=== PATIENT | female | born 1940 | race Asian ===

== ENCOUNTER 2017-09-03 17:47 | Observation (INO) | payer MEDICARE ==
[~2017-09-03] VITALS: Ht 160 cm; Wt 51.0 kg
[2017-09-03] VITALS (7 sets, daily range): BP systolic 127–146; BP diastolic 68–78; PULSE 77–88; RESP 16–18; TEMP 98.3; O2SAT 97–100
[~2017-09-03 17:47] MED LIST: PERC7.5T13 PO
[2017-09-03] MEDS ORDERED: MULTTAB12 (19:20)
[2017-09-03 19:55] LABS: AUTOMATED NEUTROPHIL # 4.2 TH/MM3 (1.8-7.7); BASOPHIL # 0.1 TH/MM3 (0-0.2); BASOPHIL % 0.9 % (0.0-2.0); CHLORIDE 101 MEQ/L (98-107); EOSINOPHIL # 0.3 TH/MM3 (0-0.4); EOSINOPHIL % 4.9 % (0.0-4.0); HEMATOCRIT 39.8 % (35.0-46.0); HEMOGLOBIN 13.7 GM/DL (11.6-15.3); LYMPH % 22.1 % (9.0-44.0); LYMPHOCYTE # 1.4 TH/MM3 (1.0-4.8); MEAN CELL VOLUME 87.5 FL (80.0-100.0); MEAN CORPUSCULAR HEMOGLOBIN 30.2 PG (27.0-34.0); MEAN CORPUSCULAR HGB CONC 34.5 % (32.0-36.0); MONO % 6.9 % (0.0-8.0); MONOCYTE # 0.4 TH/MM3 (0-0.9); NEUT % 65.2 % (16.0-70.0); PLATELET COUNT 189 TH/MM3 (150-450); RED BLOOD COUNT 4.55 MIL/MM3 (4.00-5.30); RED CELL DISTRIBUTION WIDTH 12.8 % (11.6-17.2); SODIUM (NA) 137 MEQ/L (136-145); WHITE BLOOD COUNT 6.4 TH/MM3 (4.0-11.0)
[2017-09-03 19:58] LABS: CALCIUM 8.9 MG/DL (8.5-10.1)
[2017-09-03 19:59] LABS: ALBUMIN 3.9 GM/DL (3.4-5.0); BICARBONATE 29.5 MEQ/L (21.0-32.0); BLOOD UREA NITROGEN 10 MG/DL (7-18); GLUCOSE,RANDOM 95 MG/DL (74-106); MAGNESIUM 2.5 MG/DL (1.5-2.5)
[2017-09-03 20:00] LABS: PROTHROMBIN TIME - PATIENT 10.2 SEC (9.8-11.6)
[2017-09-03 20:02] LABS: ALT (GPT) 23 U/L (10-53); AST (GOT) 26 U/L (15-37); CREATININE 0.53 MG/DL (0.50-1.00); GLOMERULAR FILTRATION RATE 112 ML/MIN (>89)
[2017-09-03 20:03] LABS: TOTAL BILIRUBIN ADULT 0.3 MG/DL (0.2-1.0); TOTAL PROTEIN 7.8 GM/DL (6.4-8.2)
[2017-09-03 20:03] LABS: BILIRUBIN, URINE NEG (NEG); BLOOD, URINE NEG (NEG); GLUCOSE,URINE NEG (NEG); KETONE, URINE NEG (NEG); NITRITE,URINE NEG (NEG); URINE COLOR YELLOW (YELLW/STRAW); URINE LEUKOCYTE ESTERASE NEG (NEG)
[2017-09-03 20:05] LABS: ALKALINE PHOSPHATASE 78 U/L (45-117)
[2017-09-03 20:07] LABS: TROPONIN I LESS THAN 0.02 NG/ML (0.02-0.05)
--- NOTE | 2017-09-03 20:09 | RADRPT ---
EXAM DATE: 09/03/2017 8:05 PM EDT AGE/SEX: 77 years / Female INDICATIONS: Dizziness. CLINICAL DATA: This is the patient's initial encounter. Patient reports that signs and symptoms have been present for 4 - 6 days and indicates a pain score of 0/10. MEDICAL/SURGICAL HISTORY: . . RADIATION DOSE: 48.37 CTDI (mGy) COMPARISON: No prior [facility] exams available for comparison. TECHNIQUE: CT of the head without contrast. Using automated exposure control and adjustment of the mA and/or kV according to patient size, radiation dose was kept as low as reasonably achievable to ob tain optimal diagnostic quality images. FINDINGS: Cerebrum: The ventricles are normal for age. No evidence of midline shift, mass lesion, hemorrhage or acute infarction. No extraaxial fluid collections are seen. Posterior Fossa: The cerebellum and brainstem are intact. The 4th ventricle is midline. The cerebe llopontine angle is unremarkable. Extracranial: The visualized portion of the orbits is intact. Skull: The calvaria is intact. No evidence of skull fracture. CONCLUSION: 1. No acute intracranial abnormality. Electronically signed by: Glenroy Puri MD 09/03/2017 8:07 PM EDT
[2017-09-03 20:13] LABS: SQUAMOUS EPITHELIAL CELL URINE 0-5 /hpf (0-5)
--- NOTE | 2017-09-03 20:16 | RADRPT ---
EXAM DATE: 09/03/2017 8:14 PM EDT AGE/SEX: 77 years / Female INDICATIONS: Dizziness, weakness for 4 days CLINICAL DATA: This is the patient's initial encounter. Patient reports that signs and symptoms have been present for 4 - 6 days and indicates a pain score of 0/10. MEDICAL/SURGICAL HISTORY: None. None. COMPARISON: No prior [facility] exams available for comparison. FINDINGS: A single AP view of the chest demonstrates the lungs to be symmetrically aerated without evidence of mass, infiltrate or effusion. The cardiomediastinal contours are unremarkable. Osseous structures a re intact. CONCLUSION: Lungs are clear. Electronically signed by: aDle Chaney MD 09/03/2017 8:15 PM EDT
--- NOTE | 2017-09-03 20:29 | PD ---
HPI Chief Complaint: Dizziness Time Seen by Provider: 19:14 Travel History International Travel<30 days: No Contact w/Intl Traveler<30days: No Traveled to known affect area: No History of Present Illness HPI Patient presents to the emergency department complaining of dizziness since Wednesday. Also reporting dyspnea at rest on exertion especially at night when she is lying flat states that she has to wake up in the [place] because she is short of breath. Complaint of substernal chest tightness, nonradiating, minutes in duration, alleviated with massage in her chest, no aggravating factors. She is also denying fever, chills, abdominal pain, diarrhea, numbness , tingling, hematuria, or vertigo. He does report nausea vomiting stating that she vomited twice on Wednesday (po intake), frontal headache, right flank pain since today while she was doing laundry. Unsure of vision change. PFSH Past Medical History Heart Rhythm Problems: Yes (DIAGNOSES ONE TIME ONLY LONG AGO) Cancer: No Cardiovascular Problems: Yes (ABNORMAL EKG) Endocrine: Yes Gastrointestinal Disorders: Yes GERD: Yes Genitourinary: No Immune Disorder: No Musculoskeletal: Yes Neurologic: No Psychiatric: No Reproductive: No Respiratory: No Thyroid Disease: Yes (STABLE CURRENTLY) Tetanus Vaccination: Unknown Influenza Vaccination: No Past Surgical History Pacemaker: No Other Surgery: Yes (COLON POLYP REMOVAL) Social History Alcohol Use: No Tobacco Use: No Substance Use: No Allergies-Medications (Allergen,Severity, Reaction): Coded Allergies: Sulfa (Sulfonamide Antibiotics) (Verified Allergy, Severe, 09/03/17) shellfish derived (Verified Allergy, Severe, 09/03/17) Reported Meds & Prescriptions Reported Meds & Active Scripts Active Reported Multiple Vitamins (Multiple Vitamin) 1 Tab Tab Review of Systems Except as stated in HPI: all other systems reviewed are Neg Physical Exam Narrative GENERAL: No acute distress. SKIN: Focused skin assessment warm/dry. HEAD: Atraumatic. Normocephalic. EYES: Pupils equal and round. No scleral icterus. No injection or drainage. ENT: No nasal bleeding or discharge. Mucous membranes pink and moist. NECK: Trachea midline. No JVD. CARDIOVASCULAR: Regular rate and rhythm. No murmur appreciated. RESPIRATORY: No accessory muscle use. Clear to auscultation. Breath sounds equal bilaterally. GASTROINTESTINAL: Abdomen soft, non-tender, nondistended. Hepatic and splenic margins not palpable. MUSCULOSKELETAL: No obvious deformities. No clubbing. No cyanosis. No edema. NEUROLOGICAL: Awake and alert. No obvious cranial nerve deficits. Motor grossly within normal limits. Normal speech. PSYCHIATRIC: Appropriate mood and affect; insight and judgment normal. Data Data Last Documented VS Vital Signs Date Time Temp Pulse Resp B/P (MAP) Pulse Ox O2 Delivery O2 Flow Rate FiO2 09/03/17 20:52 77 16 133/78 (96) 98 Room Air 09/03/17 18:06 98.3 Orders Orders Electrocardiogram (09/03/17:) B-Type Natriuretic Peptide (09/03/17:) Ckmb (Isoenzyme) Profile (09/03/17:) Complete Blood Count With Diff (09/03/17) Comprehensive Metabolic Panel (09/03/17:) Magnesium (Mg) (09/03/17:29) Prothrombin Time / Inr (Pt) (09/03/17:) Act Partial Throm Time (Ptt) (09/03/17:29) Troponin I (09/03/17:29) Chest, Single Ap (09/03/17:29) Ecg Monitoring (09/03/17:) Iv Access Insert/Monitor (09/03/17:) Oximetry (09/03/17:) Urinalysis - C+S If Indicated (09/03/17:29) Ct Brain W/O Iv Contrast(Rout) (09/03/17 19:29) Orthostatic Vital Signs (09/03/17:29) Thyroid Stimulating Hormone (09/03/17 20:32) Sodium Chlorid 0.9% 500 Ml Inj (Ns 500 M (09/03/17 20:45) Aspirin (Aspirin) (09/03/17 21:15) Admit Order (Ed Use Only) (09/03/17 21:03) Labs Laboratory Tests Test 09/03/17 19:40 09/03/17 19:51 White Blood Count 6.4 TH/MM3 Red Blood Count 4.55 MIL/MM3 Hemoglobin 13.7 GM/DL Hematocrit 39.8 % Mean Corpuscular Volume 87.5 FL Mean Corpuscular Hemoglobin 30.2 PG Mean Corpuscular Hemoglobin Concent 34.5 % Red Cell Distribution Width 12.8 % Platelet Count 189 TH/MM3 Mean Platelet Volume 8.0 FL Neutrophils (%) (Auto) 65.2 % Lymphocytes (%) (Auto) 22.1 % Monocytes (%) (Auto) 6.9 % Eosinophils (%) (Auto) 4.9 % Basophils (%) (Auto) 0.9 % Neutrophils # (Auto) 4.2 TH/MM3 Lymphocytes # (Auto) 1.4 TH/MM3 Monocytes # (Auto) 0.4 TH/MM3 Eosinophils # (Auto) 0.3 TH/MM3 Basophils # (Auto) 0.1 TH/MM3 CBC Comment DIFF FINAL Differential Comment Prothrombin Time 10.2 SEC Prothromb Time International Ratio 1.0 RATIO Activated Partial Thromboplast Time 24.7 SEC Blood Urea Nitrogen 10 MG/DL Creatinine 0.53 MG/DL Random Glucose 95 MG/DL Total Protein 7.8 GM/DL Albumin 3.9 GM/DL Calcium Level 8.9 MG/DL Magnesium Level 2.5 MG/DL Alkaline Phosphatase 78 U/L Aspartate Amino Transf (AST/SGOT) 26 U/L Alanine Aminotransferase (ALT/SGPT) 23 U/L Total Bilirubin 0.3 MG/DL Sodium Level 137 MEQ/L Potassium Level 3.7 MEQ/L Chloride Level 101 MEQ/L Carbon Dioxide Level 29.5 MEQ/L Anion Gap 7 MEQ/L Estimat Glomerular Filtration Rate 112 ML/MIN Total Creatine Kinase 45 U/L Troponin I LESS THAN 0.02 NG/ML B-Type Natriuretic Peptide 6 PG/ML Urine Color YELLOW Urine Turbidity CLEAR Urine pH 6.0 Urine Specific [place] LESS/EQUAL 1.005 Urine Protein NEG mg/dL Urine Glucose (UA) NEG mg/dL Urine Ketones NEG mg/dL Urine Occult Blood NEG Urine Nitrite NEG Urine Bilirubin NEG Urine Urobilinogen 0.2 MG/DL Urine Leukocyte Esterase NEG Urine Squamous Epithelial Cells 0-5 /hpf Microscopic Urinalysis Comment CULT NOT INDICATED MDM Medical Decision Making Medical Screen Exam Complete: Yes Emergency Medical Condition: Yes Interpretation(s) ECG: Sinus rhythm, rate 73, normal axis, normal intervals QTc 409, T-wave in 1 and aVL, T-wave inversion in V1 and V2 Labs: CBC, Colace, urinalysis, chemistry, BNP within normal limits. Cardiac enzymes within normal limits. Last Impressions Head CT 09/03/171928 Signed Impressions: CONCLUSION: 1. No acute intracranial abnormality. Chest X-Ray 09/03/171928 Signed Impressions: CONCLUSION: Lungs are clear. Differential Diagnosis Orthostasis, CVA or intracranial abnormality, ACS, CHF, musculoskeletal chest pain, UTI Narrative Course Patient presents to the emergency department complaining of dizziness and chest tightness. Placed on hall monitor, IV access obtain, EKG done, chest x-ray and labs ordered, as well as orthostats. The nurse attempted to do orthostats but patient was not able to go from sitting to standing secondary to dizziness. No evidence of orthostasis when she went from lying to sitting based on heart rate and blood pressure but patient reports dizziness. 2032: 500 cc IV normal saline ordered as well as TSH. Aspirin 325 mg p.o. also ordered. 2136: Patient reports that the dizziness is better after receiving IV fluids. She is able to sit up and eat in the ER. TSH is pending at time of admission, admit team will follow. Diagnosis Primary Impression: Dizziness Additional Impression: Chest pain Qualified Codes: R07.9 - Chest pain, unspecified Admitting Information Admitting Physician Requests: Admit Condition: Stable Blanca Menjivar MD September 03, 2017 20:29
[2017-09-03] MEDS ORDERED: SODIUM CHLORID 0.9% 500 ML INJ 500 ML IV ONE (20:45)
[2017-09-03] MEDS ORDERED: MAGNESIUM HYDROXIDE SUSP 30 ML CUP PO PRN (21:15)
[2017-09-03] MEDS ORDERED: SODIUM CHLORIDE 0.9% FLUSH 10 ML FLUSH IV FLUSH PRN (21:15)
[2017-09-03] MEDS ORDERED: MORPHINE SULFATE 2 MG/ML SYRINGE IV PUSH PRN (21:15)
[2017-09-03] MEDS ORDERED: BISACODYL 10 MG SUPP RECTAL PRN (21:15)
[2017-09-03] MEDS ORDERED: ASPIRIN 325 MG TAB PO ONE (21:15)
[2017-09-03] MEDS ORDERED: ACETAMINOPHEN/HYDROcodone 325 MG/5 MG TAB PO PRN (21:15)
[2017-09-03] MEDS ORDERED: METOCLOPRAMIDE HCL 10 MG/2 ML VIAL IV PUSH PRN (21:15)
[2017-09-03] MEDS ORDERED: SENNOSIDES 8.6 MG TAB PO PRN (21:15)
[2017-09-03] MEDS ORDERED: LACTULOSE SYRUP 20 GM/30 ML CUP PO PRN (21:15)
[2017-09-03] MEDS ORDERED: ACETAMINOPHEN 325 MG TAB PO PRN (21:15)
[2017-09-03] MEDS: SODIUM CHLOR 0.9% 1000 ML INJ 1,000 ML IV SCH (21:44)
[2017-09-04] VITALS: BP 172/81; PULSE 89; RESP 16; TEMP 98.8; O2SAT 96
[2017-09-04 04:00] VITALS: BP 169/82; PULSE 98; RESP 16; TEMP 98; O2SAT 98
[2017-09-04] MEDS: SODIUM CHLOR 0.9% 1000 ML INJ 1,000 ML IV SCH (07:02)
[2017-09-04 07:10] LABS: BASOPHIL # 0.1 TH/MM3 (0-0.2); BASOPHIL % 1.4 % (0.0-2.0); EOSINOPHIL # 0.4 TH/MM3 (0-0.4); EOSINOPHIL % 7.5 % (0.0-4.0); HEMATOCRIT 37.7 % (35.0-46.0); HEMOGLOBIN 12.4 GM/DL (11.6-15.3); LYMPH % 25.2 % (9.0-44.0); LYMPHOCYTE # 1.3 TH/MM3 (1.0-4.8); MEAN CELL VOLUME 88.6 FL (80.0-100.0); MEAN CORPUSCULAR HEMOGLOBIN 29.2 PG (27.0-34.0); MONO % 8.2 % (0.0-8.0); MONOCYTE # 0.4 TH/MM3 (0-0.9); NEUT % 57.7 % (16.0-70.0); PLATELET COUNT 150 TH/MM3 (150-450); RED BLOOD COUNT 4.25 MIL/MM3 (4.00-5.30); RED CELL DISTRIBUTION WIDTH 12.3 % (11.6-17.2); WHITE BLOOD COUNT 5.2 TH/MM3 (4.0-11.0)
[2017-09-04 07:49] LABS: ALBUMIN 3.2 GM/DL (3.4-5.0); ALKALINE PHOSPHATASE 57 U/L (45-117); ALT (GPT) 20 U/L (10-53); AST (GOT) 20 U/L (15-37); BICARBONATE 26.1 MEQ/L (21.0-32.0); BLOOD UREA NITROGEN 10 MG/DL (7-18); CALCIUM 8.3 MG/DL (8.5-10.1); CHLORIDE 111 MEQ/L (98-107); CREATININE 0.46 MG/DL (0.50-1.00); GLOMERULAR FILTRATION RATE 132 ML/MIN (>89); GLUCOSE,RANDOM 93 MG/DL (74-106); SODIUM (NA) 145 MEQ/L (136-145); TOTAL BILIRUBIN ADULT 0.5 MG/DL (0.2-1.0); TOTAL PROTEIN 6.5 GM/DL (6.4-8.2)
[2017-09-04 08:15] LABS: TROPONIN I LESS THAN 0.02 NG/ML (0.02-0.05)
[2017-09-04 08:46] VITALS: BP 139/86; PULSE 85; RESP 16; TEMP 98.2; O2SAT 98
--- NOTE | 2017-09-04 08:55 | HHI.HP ---
[facility] Primary [facility] Physician Debora Oscar MD Admission Diagnosis dizziness, chest pain Diagnoses: (1) Chest pain Diagnosis: Principal (2) Shortness of breath Diagnosis: Principal (3) Dizziness Diagnosis: Principal Chief Complaint: Dizziness, nausea, shortness of breath and chest discomfort Travel History International Travel<30 Days: No Contact w/Intl Traveler <30 Da: No Traveled to Known Affected Are: No History of Present Illness Written by Gian Hodge, acting as scribe for Dr. New on 09/04/17 at 08: 54. 77-year-old female with history of hypothyroidism who presented the hospital because of a 5 day history of dizziness, shortness of breath, chest discomfort. 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 She is trying to get his stay not mix nail sami remover with OxyContin, while she was mixing that together with her hand she felt a hot sensation so she stopped doing that and watch her hands. Approximately 2 hours after that she started developing some dizziness in which she describes it as she was swaying. She did not have any spinning sensation. At that time she felt hungry and she went and ate something and then shortly after that she developed nausea and vomiting 2. The patient went home after that and she laid down. Every time that she got up she started developing lightheadedness and dizziness but no recurrent nausea and vomiting. She also started developing heaviness sensation in her chest in which she indicates was worse with exertion. While at rest the discomfort was a 5/10, during exertion with 7/ 10. She continued indicate that whenever she exerted herself the heaviness would get worse, she did have worsening dizziness as well as shortness of breath. Because this persisted for 5 days she came to emergency department for evaluation. In the past she did see a box sealing inspector Dr. Олег Wallis, patient did have a myocardial perfusion study done in 2001 which was normal. The patient presently is still experiencing the discomfort. Patient had workup done and essentially unremarkable. Patient was recommended observation to evaluate her discomfort and symptoms. Review of Systems Constitutional: COMPLAINS OF: Dizziness Respiratory: COMPLAINS OF: Shortness of breath Cardiovascular: COMPLAINS OF: Chest pain Except as stated in HPI: all other systems reviewed are Neg Past Family Social History Past Medical History Hypothyroidism History of colon polyp Past Surgical History Colonoscopy with polyp removal Reported Medications Reported Meds & Active Scripts Active Reported Multiple Vitamins (Multiple Vitamin) 1 Tab Tab Allergies: Coded Allergies: Sulfa (Sulfonamide Antibiotics) (Verified Allergy, Severe, 09/03/17) shellfish derived (Verified Allergy, Severe, 09/03/17) Family History Family history was reviewed and is significant for father having thyroid problems and liver disease. Mother with cancer of unknown kind Social History Patient denies any tobacco, alcohol or illicit drug Physical Exam Vital Signs Vital Signs Date Time Temp Pulse Resp B/P (MAP) Pulse Ox O2 Delivery O2 Flow Rate FiO2 09/04/17 08:46 98.2 85 16 139/86 (103) 98 09/04/17 04:00 98.0 98 16 169/82 (111) 98 09/04/17 00:00 98.8 89 16 172/81 (111) 96 09/03/17 22:57 09/03/17 22:22 88 16 139/69 (92) 99 Room Air 09/03/17 21:52 86 16 146/72 (96) 99 Room Air 09/03/17 21:22 80 16 133/78 (96) 97 Room Air 09/03/17 20:52 77 16 133/78 (96) 98 Room Air 09/03/17 20:16 6 16 139/73 (95) 79 16 144/77 (99) 09/03/17 19:07 16 100 Room Air 09/03/17 19:07 80 16 100 Room Air 09/03/17 18:06 98.3 85 18 127/68 (87) 98 Physical Exam GENERAL: Well-developed, well-nourished, in no acute distress. alert and orientated HEENT: Head is normocephalic without any lesions or masses noted. Facial features are symmetric. Eyes: Pupils equal round reactive to light. Extraocular muscles are intact. Conjunctivae were clear. Oropharyngeal: Pharynx without any erythema edema. Tongue is midline without deviation. Buccal mucosa is moist without any masses or lesions NECK: Supple without any masses. Trachea midline no deviation. No JVD, no bruits are appreciated CARDIAC: Regular rhythm, regular rate. S1/S2 are heard. No murmurs gallops or rubs. LUNGS: Clear to auscultation bilaterally. No wheeze, rhonchi or rales. No use of accessory muscles on inspiration or expiration. ABDOMEN: Soft, nontender. Nondistended. Bowel sounds heard in all 4 quadrants. No organomegaly or masses. Negative rebound, negative guarding EXTREMITIES: No edema, pulses are equal bilaterally. No cyanosis or clubbing NEUROLOGY: Mood and affect appear appropriate. Cranial nerves II through XII grossly intact. Muscle strength 5/5 in upper and lower extremities bilaterally. Deep tendon reflexes are 2+ in upper and lower extremities bilaterally. Laboratory Laboratory Tests Test 09/03/17 19:40 09/03/17 19:51 09/04/17 00:50 09/04/17 06:00 White Blood Count 6.4 5.2 Red Blood Count 4.55 4.25 Hemoglobin 13.7 12.4 Hematocrit 39.8 37.7 Mean Corpuscular Volume 87.5 88.6 Mean Corpuscular Hemoglobin 30.2 29.2 Mean Corpuscular Hemoglobin Concent 34.5 33.0 Red Cell Distribution Width 12.8 12.3 Platelet Count 189 150 Mean Platelet Volume 8.0 8.0 Neutrophils (%) (Auto) 65.2 57.7 Lymphocytes (%) (Auto) 22.1 25.2 Monocytes (%) (Auto) 6.9 8.2 Eosinophils (%) (Auto) 4.9 7.5 Basophils (%) (Auto) 0.9 1.4 Neutrophils # (Auto) 4.2 3.0 Lymphocytes # (Auto) 1.4 1.3 Monocytes # (Auto) 0.4 0.4 Eosinophils # (Auto) 0.3 0.4 Basophils # (Auto) 0.1 0.1 CBC Comment DIFF FINAL DIFF FINAL Differential Comment Prothrombin Time 10.2 Prothromb Time International Ratio 1.0 Activated Partial Thromboplast Time 24.7 Blood Urea Nitrogen 10 10 Creatinine 0.53 0.46 Random Glucose 95 93 Total Protein 7.8 6.5 Albumin 3.9 3.2 Calcium Level 8.9 8.3 Magnesium Level 2.5 Alkaline Phosphatase 78 57 Aspartate Amino Transf (AST/SGOT) 26 20 Alanine Aminotransferase (ALT/SGPT) 23 20 Total Bilirubin 0.3 0.5 Sodium Level 137 145 Potassium Level 3.7 3.9 Chloride Level 101 111 Carbon Dioxide Level 29.5 26.1 Anion Gap 7 8 Estimat Glomerular Filtration Rate 112 132 Total Creatine Kinase 45 Troponin I LESS THAN 0.02 LESS THAN 0.02 LESS THAN 0.02 B-Type Natriuretic Peptide 6 Urine Color YELLOW Urine Turbidity CLEAR Urine pH 6.0 Urine Specific [place] LESS/EQUAL 1.005 Urine Protein NEG Urine Glucose (UA) NEG Urine Ketones NEG Urine Occult Blood NEG Urine Nitrite NEG Urine Bilirubin NEG Urine Urobilinogen 0.2 Urine Leukocyte Esterase NEG Urine Squamous Epithelial Cells 0-5 Microscopic Urinalysis Comment CULT NOT INDICATED Result Diagram: 09/04/1759909/04/17599 Imaging Last Impressions Head CT 09/03/171928 Signed Impressions: CONCLUSION: 1. No acute intracranial abnormality. Chest X-Ray 09/03/171928 Signed Impressions: CONCLUSION: Lungs are clear. Caprini VTE Risk Assessment Caprini VTE Risk Assessment: Mod/High Risk (score >= 2) Caprini Risk Assessment Model Point Value = 1 Point Value = 2 Point Value = 3 Point Value = 5 Age 41-60 Minor surgery BMI > 25 kg/m2 Swollen legs Varicose veins or History of unexplained or recurrent spontaneous Oral contraceptives or hormone replacement Sepsis (< 1 month) Serious lung disease, including pneumonia (< 1 month) Abnormal pulmonary function Acute myocardial infarction Congestive heart failure (< 1 month) History of inflammatory bowel disease Medical patient at bed rest Age 61-74 Arthroscopic surgery Major open surgery (> 45 min) Laparoscopic surgery (> 45 min) Malignancy Confined to bed (> 72 hours) Immobilizing plaster cast Central venous access Age >= 75 History of VTE Family history of VTE Factor V Leiden Prothrombin [id number] Lupus anticoagulant Anticardiolipin antibodies Elevated serum homocysteine Heparin-induced thrombocytopenia Other congenital or acquired thrombophilia Stroke (< 1 month) Elective arthroplasty Hip, pelvis, or leg fracture Acute spinal cord injury (< 1 month) Prophylaxis Regimen Total Risk Factor Score Risk Level Prophylaxis Regimen 0-1 Low Early ambulation 2 Moderate Order ONE of the following: *Sequential Compression Device (SCD) *Heparin 5000 units SQ BID 3-4 Higher Order ONE of the following medications: *Heparin 5000 units SQ TID *Enoxaparin/Lovenox 40 mg SQ daily (WT < 150 kg, CrCl > 30 mL/min) *Enoxaparin/Lovenox 30 mg SQ daily (WT < 150 kg, CrCl > 10-29 mL/min) *Enoxaparin/Lovenox 30 mg SQ BID (WT < 150 kg, CrCl > 30 mL/min) AND/OR *Sequential Compression Device (SCD) 5 or more Highest Order ONE of the following medications: *Heparin 5000 units SQ TID (Preferred with Epidurals) *Enoxaparin/Lovenox 40 mg SQ daily (WT < 150 kg, CrCl > 30 mL/min) *Enoxaparin/Lovenox 30 mg SQ daily (WT < 150 kg, CrCl > 10-29 mL/min) *Enoxaparin/Lovenox 30 mg SQ BID (WT < 150 kg, CrCl > 30 mL/min) AND *Sequential Compression Device (SCD) Assessment and Plan Problem List: (1) Chest pain ICD Code: R07.9 - Chest pain, unspecified Status: Acute Assessment and Plan Chest discomfort with associated dizziness, shortness of breath on exertion -Patient risk factor is age, postmenopausal without exogenous hormones -Patient has been ruled out for acute coronary event with serial cardiac enzymes that have remained negative -EKGs were reviewed which did not indicate any acute abnormalities -Exercise stress test was performed and indicated no signs of ischemia -Patient was given aspirin in the emergency department -We will give patient Antivert 25 mg 1 and monitor response Elevated blood pressure readings -Patient denies any previous history of hypertension, could be secondary to stress -Patient blood pressure readings have ranged anywhere from 139/86-172/81 -Orthostatic vitals were normal -Patient needs to continue follow-up with her prior medical doctor for blood pressure monitoring History of hyperthyroidism -TSH was normal at 0.832 DVT prevention -Sequential compression devices Discharge disposition Discharge home in stable condition Activity: Ad clive. Diet: Healthy heart diet Medication per medication reconciliation Follow-up with primary medical doctor in 1 week This note was transcribed by julio Hodge. I, Dr. Олег New personally performed the history, physical exam, and medical decision making; and confirmed the accuracy of the information in the transcribed note. Authenticated by Dr. Олег New on 09/04/17 at 08:54. Code Status Full code Discussed Condition With Patient Problem Qualifiers (1) Chest pain: Qualified Codes: R07.9 - Chest pain, unspecified Gian Hodge September 04, 2017 08:55 Олег New MD September 04, 2017 08:56
[2017-09-04] MEDS ORDERED: SODIUM CHLORIDE 0.9% FLUSH 10 ML FLUSH IV FLUSH SCH (09:00)
[2017-09-04] MEDS ORDERED: DOCUSATE SODIUM 50 MG/SENNA 8.6 MG TAB PO SCH (09:00)
[2017-09-04 09:45] VITALS: BP 129/72; PULSE 83
[2017-09-04 09:47] VITALS: BP_SYST 125; BP_SYST 134; BP_DIAS 68; BP_DIAS 72; PULSE 89; PULSE 91
--- NOTE | 2017-09-04 10:44 | HHI.DCPOC ---
Discharge Care Plan Diagnosis: (1) Chest pain (2) Dizziness (3) Shortness of breath Goals to Promote Your Health * To prevent worsening of your condition and complications * To maintain your health at the optimal level Directions to Meet Your Goals Take your medications as prescribed Follow your dietary instruction Follow activity as directed Keep your appointments as scheduled Take your immunizations and boosters as scheduled If your symptoms worsen call your PCP, if no PCP go to Urgent Care Center or Emergency Room Smoking is Dangerous to Your Health. Avoid second hand smoke Call the 24-hour hour crisis hotline for domestic abuse at Gian Hodge September 04, 2017 10:44
[2017-09-04] MEDS ORDERED: MECLIZINE HCL 25 MG TAB PO ONE (10:45)
--- NOTE | 2017-09-04 10:54 | TR ---
Date Performed: 09/04/2017 Time Performed: 10:21:47 DOCTOR: Silvano Valenzuela DRUG LIST: CLINICAL HISTORY: CHEST PAIN REASON FOR TEST: REASON FOR ENDING: Completed Protocol OBSERVATION: Arrhythmia: None Chest Pain: None CONCLUSION: Patient tolerated BARNEY protocol with Total Exercise Time=3:59 Maximum OB=845 % Max HR Ijjdsspn=422.0% Maximum CF=506/78, Testing stopped secondary to goals acheived and physical endura nce. During peak exercise, patient had upsloping ST segments, No significant ST depressions, HR and B P appropriate response to exercise. Recovery phase patient with mild dizziness, HR and BP returned to baseline COMMENTS: Conclusion: Normal treadmill exercise. No evidence of ischemia.
[2017-09-04] MEDS ORDERED: MECL-62 PO (11:23)
--- NOTE | 2017-09-04 13:43 | EKG ---
Date Performed: 09/03/2017 Time Performed: 19:37:11 PTAGE: 77 years EKG: Sinus rhythm NORMAL ECG Compared to PREVIOUS TRACING , anterior T-wave changes have improved. PREVIOUS TRACIN12/28/2011 10 .07 DOCTOR: Silvano Valenzuela Interpretating Date/Time 09/04/2017 13:43:04
--- NOTE | 2017-09-05 13:11 | EKG ---
Date Performed: 09/04/2017 Time Performed: 08:57:42 PTAGE: 77 years EKG: Sinus rhythm LOW QRS VOLTAGE IN PRECORDIAL LEADS NONSPECIFIC T-WAVE ABNORMALITY BORDERLINE ECG Compared to PREVIOUS TRACING , the ST-T changes are new. PREVIOUS TRACIN09/03/2017 19.37 DOCTOR: Silvano Valenzuela Interpretating Date/Time 09/05/2017 13:11:00
== END 2017-09-04 13:16 | disposition home or self-care (01) ==
LOC: PHED 17:47 → PHEDA 21:05 → PH3A 22:45
PROVIDERS: ADMIT Hospitalist; ATTEND Hospitalist
DX: R42 Dizziness and giddiness (principal); R07.89 Other chest pain; R06.02 Shortness of breath; R94.31 Abnormal electrocardiogram [ECG] [EKG]; K21.9 Gastro-esophageal reflux disease without esophagitis; R03.0 Elevated blood-pressure reading, without diagnosis of hypertension; E83.51 Hypocalcemia; Z79.82 Long term (current) use of aspirin; Z80.9 Family history of malignant neoplasm, unspecified; Z86.010 Personal history of colon polyps
CPT/HCPCS: 70450; 71045; 80053; 81001; 82550; 83735; 83880; 84443; 84484; 85025; 85610; 85730; 93005; 93017; 96360; 96361; 99285; G0378; J7030; J7040